=== PATIENT | female | born 2000 ===

== ENCOUNTER 2023-04-24 07:41 | Inpatient (IN) ==
[2023-04-24] MEDS ORDERED: OXYTOCIN 30 UNITS/NSS 30 UNITS/500 ML BAG IV PRN (10:15)
[2023-04-24] MEDS ORDERED: LIDOCAINE 1% LOCAL 20 ML VIAL INFIL PRN (10:15)
[2023-04-24] MEDS ORDERED: PENICILLIN GK 6 MU in DEXTROSE 5% 250 ML IV STA (10:20)
[2023-04-24] MEDS ORDERED: DINOPROSTONE 10 MG INSERT PV ONE (11:00)
--- NOTE | 2023-04-24 11:00 | History & Physical Report ---
Date of Service April 24, 2023 Assessment & Plan (1) Post-dates : Plan INDUCTION OF LABOR CERVICAL RIPENING WITH CERVIDIL Admission and Anticipated Discharge Date Admission Date: April 24, 2023 History of Present Illness Chief Complaint: induction of labor for post-dates Primary Care Provider: [facility] PCP 22 F P0000 at 40.5 weeks presents for induction of labor for post-dates . GBS is positive. Allergies Allergy/AdvReac Type Severity Reaction Status Date / Time clopidogrel [From Plavix] Allergy Anaphylaxis Verified 04/24/23 08:08 Home Medications Medication Instructions Recorded Confirmed Type aspirin 81 mg chewable tablet 81 mg PO DAILY 04/24/23 04/24/23 History ferrous sulfate 325 mg (65 mg 325 mg PO DAILY 04/24/23 04/24/23 History iron) tablet (Iron (ferrous sulfate)) levothyroxine 100 mcg tablet 100 mcg PO DAILY 04/24/23 04/24/23 History (Synthroid) [id number]-[id number] 1 mg 1 tab PO DAILY 04/24/23 04/24/23 History tablet Patient History Medical History Mitral valve prolapse History of COVID-07 February 2023 Iron (Fe) deficiency anemia Iron infusions X3 Mitral regurgitation Hypothyroid Surgical History History of percutaneous transcatheter closure of congenital ASD Repaired in 2019 at age [age] years old Family History Other No known health problems Social History Smoking Status: Never smoker Hx Alcohol Use: No Hx Substance Use: No Preferred Language: [place]an Visual Impairment: No Limitations Card Writer Hand Required: No Beliefs That Will Affect Care: None marital status: Single Current Living Situation: Significant Other Current Living Situation Comment: Lives with boyfriend, Jovany Wilcox current occupational status: employed current occupation: TRADER at [employer] Other Information That Helps Us Care for You: No Feels Safe at Home: Yes Safety Concerns: Feels Safe At This Time OB 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 Review of Systems All systems reviewed & are unremarkable except as noted in HPI & below Physical Exam Constitutional: WD/WN, vitals as above Eyes: PERRL, conjunctivae normal, anicteric sclerae Respiratory: normal respiratory effort, lungs clear to auscultation Cardiovascular: Rate/Rhythm: regular rate and regular rhythm Gastrointestinal (Abdomen): Inspection/Auscultation: abdomen normal to inspection Musculoskeletal: Extremities: extremities normal to inspection Skin: no rashes, warm and dry Neurologic: patellar DTR's 2+ bilat, sensation intact Psychiatric: A+Ox3, euthymic affect Genitourinary: no vaginal lesions, no adnexal mass OB Exam Abdomen: + fundal height and + vertex Manual OB Exam: + cervical dilation fingertip, + cervical effacement 50% and + station high OB Exam Monitor Tracing: + external FHT monitor used, + external uterine monitor used, + category I and + normal FHT variability posterior/firm EFW 6-7 lbs. Results & Data Vital Signs (Past 12 Hours) Vital Signs Temp Pulse Resp BP 04/24/23 08:16 88 119/77 04/24/23 08:11 36.9 C 18 Code Status & VTE Plan VTE Prophylaxis Plan VTE Prophylaxis will be ordered: No Monitoring External Monitor CAT 1
--- NOTE | 2023-04-24 11:16 | Labor Progress Brief Note ---
Date of Service April 24, 2023 Assessment & Plan Admission and Anticipated Discharge Date Admission Date: April 24, 2023 Physical Exam Genitourinary: OB Exam Monitor Tracing: + external FHT monitor used, + external uterine monitor used, + category I and + normal FHT variability Cervidil 10 mg placed vaginally Results & Data Vital Signs (Past 12 Hours) Vital Signs Temp Pulse Resp BP 04/24/23 11:12 78 120/64 04/24/23 08:16 88 119/77 04/24/23 08:11 36.9 C 18
[2023-04-24 11:50] LABS: Hematocrit (blood only) 37.1 % (37.0-47.0); Hemoglobin 12.4 g/dl (12.0-16.0); Mean Corpuscular Hemoglobin 28.9 pg (25.0-34.0); Mean Corpuscular Hgb Conc 33.4 g/dL (32.0-36.0); Mean Corpuscular Volume 86.5 fL (80.0-100.0); Mean Platelet Volume 12.8 fL (9.4-12.4); Platelet Count 108 K/uL (130-400); RDW Coefficient of Variation 16.3 % (11.5-14.5); RDW Standard Deviation 51.7 fL (36.4-46.3); Red Blood Count 4.29 M/uL (4.20-5.40); White Blood Count 9.66 K/ul (4.8-10.8)
[2023-04-24] MEDS ORDERED: PENICILLIN GK 3 MU in DEXTROSE 5% 100 ML IV PRN (13:15)
[2023-04-24] MEDS: LACTATED RINGER'S 1,000 ML IV PRN (23:02)
[2023-04-24] MEDS ORDERED: ePHEDrine sulfate 50 MG/ML AMP ONE (23:05)
[2023-04-24] MEDS ORDERED: SODIUM CHLORIDE 0.9% PF INJ 10 ML VIAL ONE (23:05)
[2023-04-24] MEDS ORDERED: fentANYL 2 MCG/ML BUPIVacaine 0.125%-NSS 100ML BAG ONE (23:05)
[2023-04-24] MEDS ORDERED: fentaNYL citrate PF 100 MCG/2 ML VIAL ONE (23:05)
[2023-04-24] MEDS ORDERED: LIDOCAINE 2%/EPINEPHRINE 1:200,000 20 ML PF ONE (23:06)
[2023-04-24] MEDS ORDERED: BUPIVACAINE 0.25% PF 30 ML VIAL ONE (23:06)
[2023-04-24] MEDS ORDERED: LIDOCAINE 2% MPF LOCAL 5 ML VIAL EPI PRN (23:11)
[2023-04-24] MEDS ORDERED: ePHEDrine sulfate 50 MG/ML AMP IV PRN (23:11)
[2023-04-24] MEDS ORDERED: BUPIVACAINE 0.25% PF 30 ML VIAL EPI PRN (23:11)
[2023-04-24] MEDS ORDERED: BUPIVACAINE 0.25% PF 30 ML VIAL EPI STA (23:11)
[2023-04-24] MEDS ORDERED: diphenhydrAMINE 50 MG/ML VIAL IV PRN (23:11)
[2023-04-24] MEDS ORDERED: SODIUM CHLORIDE 0.9% PF INJ 10 ML VIAL EPI PRN (23:11)
[2023-04-24] MEDS ORDERED: NALOXONE HCL 1 MG in SODIUM CHLORIDE 0.9% 1,000 ML IV PRN (23:11)
[2023-04-24] MEDS ORDERED: LIDOCAINE 2%/EPINEPHRINE 1:200,000 20 ML PF EPI STA (23:11)
[2023-04-24] MEDS ORDERED: ROPIVACAINE 0.5% PF 5 MG/ML 20 ML VIAL EPI PRN (23:11)
[2023-04-24] MEDS ORDERED: fentANYL 2 MCG/ML BUPIVacaine 0.125%-NSS 100ML BAG EPI PRN (23:11)
[2023-04-24] MEDS ORDERED: SODIUM CHLORIDE 0.9% PF INJ 10 ML VIAL EPI STA (23:11)
[2023-04-24] MEDS ORDERED: fentaNYL citrate PF 100 MCG/2 ML VIAL EPI STA (23:11)
[2023-04-24] MEDS ORDERED: NALBUPHINE HCL 5 MG in SYRINGE 0 ML IV PRN (23:11)
[2023-04-24] MEDS ORDERED: NALOXONE HCL 0.4 MG/1 ML VIAL/CARP IV PRN (23:11)
[2023-04-24] MEDS ORDERED: fentaNYL citrate PF 100 MCG/2 ML VIAL EPI PRN (23:11)
--- NOTE | 2023-04-24 23:11 | Anesthesiology Consultation ---
Date of Service April 24, 2023 Assessment & Plan Chart Review Chart Review: Patient NOT seen in Pre Admission Testing and Acceptable Risk for Labor Epidural Consults Requested none History Height/Weight Height: 5 ft 6 in Weight: 74.843 kg Allergies Allergy/AdvReac Type Severity Reaction Status Date / Time clopidogrel [From Plavix] Allergy Anaphylaxis Verified 04/24/23 08:08 Medications Home Medications Medication Instructions Recorded Confirmed Last Taken aspirin 81 mg chewable tablet 81 mg PO DAILY 04/24/23 04/24/23 04/24/23 ferrous sulfate 325 mg (65 mg 325 mg PO DAILY 04/24/23 04/24/23 04/24/23 iron) tablet (Iron (ferrous sulfate)) levothyroxine 100 mcg tablet 100 mcg PO DAILY 04/24/23 04/24/23 04/24/23 (Synthroid) [id number] 1 mg 1 tab PO DAILY 04/24/23 04/24/23 04/24/23 tablet Active Medications Generic Name Dose Route Start Last Admin Trade Name Freq PRN Reason Stop Dose Admin Lactated Ringer's 1,000 mls @ 125 mls/hr 04/24/23 10:15 04/24/23 23:02 Lr IV 04/26/23 10:14 999 mls/hr .Q8H PRN Administration L&D Protocol Protocol Past Medical History Medical History Mitral valve prolapse History of COVID-07 February 2023 Iron (Fe) deficiency anemia Iron infusions X3 Mitral regurgitation Hypothyroid Past Family History Family History Other No known health problems Past Surgical History Surgical History History of percutaneous transcatheter closure of congenital ASD Repaired in 2019 at age [age] years old Social History Smoking Status: Never smoker Hx Alcohol Use: No Hx Substance Use: No substance use type: does not use Physical Exam Vital Signs Last Vital Signs Temp 36.6 C 04/24/23 19:01 Pulse 93 H 04/24/23 22:51 Resp 18 04/24/23 19:01 BP 134/87 04/24/23 22:51 O2 Del Method Room Air 04/24/23 19:00 Constitutional WD/WN, vitals as above Eyes PERRL, conjunctivae normal, anicteric sclerae Respiratory normal respiratory effort, lungs clear to auscultation Cardiovascular Rate/Rhythm: regular rate and regular rhythm Gastrointestinal (Abdomen) Inspection/Auscultation: abdomen normal to inspection Musculoskeletal Extremities: extremities normal to inspection Skin no rashes, warm and dry Neurologic patellar DTR's 2+ bilat, sensation intact Psychiatric A+Ox3, euthymic affect Genitourinary no vaginal lesions, no adnexal mass OB Exam Abdomen: + fundal height and + vertex Manual OB Exam: + cervical dilation + fingertip, + cervical effacement + 50% and + station + high OB Exam Monitor Tracing: + external FHT monitor used, + external uterine monitor used, + category I and + normal FHT variability Testing Laboratory Results 04/24/23 10:22
[2023-04-25] MEDS: ONDANSETRON INJ 2 MG/ML 2 ML VIAL IV PRN ×2 (00:03→03:53)
[2023-04-25] MEDS: LACTATED RINGER'S 1,000 ML IV PRN (01:32)
[2023-04-25] MEDS ORDERED: OXYTOCIN 30 UNITS/NSS 30 UNITS/500 ML BAG IV PRN (05:18)
[2023-04-25] MEDS ORDERED: ACETAMINOPHEN 325 MG TAB PO PRN (05:18)
[2023-04-25] MEDS ORDERED: HYDROCORTISONE ACETATE 25 MG SUPP PR PRN (05:18)
[2023-04-25] MEDS ORDERED: DIPHTHERIA/TETANUS/PERTUSSIS Vaccine (Tdap, Age 7+yrs) 0.5mL SYR/VL IM ONE (05:18)
[2023-04-25] MEDS ORDERED: BENZOCAINE 20% SPRY 85 APPLN/85 GM CAN EXT PRN (05:18)
--- NOTE | 2023-04-25 05:25 | Delivery Summary ---
Vaginal Delivery Summary Date of Service April 25, 2023 Vaginal Delivery Summary live male JESSICA over intact perineum with nuchal cord x1 reduced at delivery of head with delayed cord clamping and Apgars 8/9 weight pending. Cord blood obtained followed by spontaneous delivery of intact placenta. No tears. EBL 150 ml. Final sponge and instrument count are correct. Mom and baby stable.
[2023-04-25] MEDS ORDERED: Nursing to Pharmacy Communication SCH (06:00)
[2023-04-25] MEDS: IBUPROFEN 600 MG TAB PO PRN ×2 (06:01→17:16)
[2023-04-25] MEDS: LEVOTHYROXINE SODIUM 100 MCG TABLET PO SCH (07:44)
--- NOTE | 2023-04-25 08:55 | Anesthesia Procedure Note ---
Date of Service April 25, 2023 Anesthesia Post Epidural Note Vital Signs Vital Signs: Temp Pulse Resp BP Pulse Ox O2 Del Method 36.8 C 91 H 18 114/57 L 98 Room Air 04/25/23 02:55 04/25/23 07:25 04/25/23 06:40 04/25/23 07:25 04/25/23 05:08 04/24/23 19:00 Pain Intensity Bilateral Abdomen: Pain Intensity: 0 Head: Pain Intensity: 0 Notes Mental Status: alert / awake / arousable and participated in evaluation Nausea / Vomiting: adequately controlled Pain: adequately controlled Airway Patency, RR, SpO2: stable & adequate BP & HR: stable & adequate Hydration State: stable & adequate Neuraxial Anesthesia: was administered and sensory block is resolving Anesthetic Complications: no major complications apparent Epidural: Removed without complications and With tip intact
[2023-04-25] MEDS ORDERED: NON-FORMULARY MEDICATION (Prenatal Multivit-Min-Fe-Fa 1 mg Tablet) PO SCH (09:00)
[2023-04-25] MEDS ORDERED: FERROUS SULFATE 325 MG TAB PO SCH (09:00)
[2023-04-25] MEDS: DOCUSATE SODIUM 100 MG CAP PO SCH ×2 (09:34→21:06)
[2023-04-25] MEDS: PRENATAL VITAMIN 1 TAB PO SCH (09:34)
[2023-04-25] MEDS: FERROUS SULFATE 325 MG TAB PO SCH (09:34)
[2023-04-25] MEDS: ASPIRIN 81 MG ECTAB PO SCH (14:38)
[2023-04-26] MEDS: LEVOTHYROXINE SODIUM 100 MCG TABLET PO SCH (06:08)
[2023-04-26 08:03] LABS: Hematocrit (blood only) 34.4 % (37.0-47.0); Hemoglobin 11.8 g/dl (12.0-16.0); Mean Corpuscular Hemoglobin 29.5 pg (25.0-34.0); Mean Corpuscular Hgb Conc 34.3 g/dL (32.0-36.0); Mean Platelet Volume 12.8 fL (9.4-12.4); Platelet Count 89 K/uL (130-400); RDW Coefficient of Variation 16.2 % (11.5-14.5); RDW Standard Deviation 50.9 fL (36.4-46.3); White Blood Count 10.01 K/ul (4.8-10.8)
[2023-04-26] MEDS: FERROUS SULFATE 325 MG TAB PO SCH (08:16)
[2023-04-26] MEDS: PRENATAL VITAMIN 1 TAB PO SCH (08:16)
[2023-04-26] MEDS: ASPIRIN 81 MG ECTAB PO SCH (08:16)
[2023-04-26] MEDS: DOCUSATE SODIUM 100 MG CAP PO SCH (08:16)
--- NOTE | 2023-04-26 09:21 | Obstetrical Progress Note ---
Date of Service April 26, 2023 Subjective Ambulation: ambulating normally Voiding: no voiding problems Passing Gas:: Yes Diet Tolerance:: regular diet Lochia:: Small Feeding Type:: breast feeding Current Pain Level(1-10): 0 doing well. wants to go home Physical Exam Constitutional WD/WN, vitals as above Gastrointestinal (Abdomen) Inspection/Auscultation: abdomen normal to inspection Musculoskeletal Extremities: extremities normal to inspection Skin no rashes, warm and dry Neurologic patellar DTR's 2+ bilat, sensation intact Psychiatric A+Ox3, euthymic affect Results & Data Vital Signs (Past 12 Hours) Vital Signs Temp Pulse Pulse Resp BP BP Pulse Ox 04/26/23 08:56 36.5 C 96 H 18 116/71 97 04/26/23 03:21 36.4 C L 65 18 97/60 L 95 04/25/23 23:45 36.7 C 48 L 18 109/71 97 O2 Del Method 04/26/23 08:56 04/26/23 03:21 Room Air 04/25/23 23:45 Room Air Laboratory Results Laboratory Results - last 72 hr 04/24/23 04/26/23 10:22 06:49 WBC 9.66 10.01 RBC 4.29 4.00 L Hgb 12.4 11.8 L Hct 37.1 34.4 L MCV 86.5 86.0 MCH 28.9 29.5 MCHC 33.4 34.3 RDW Std Deviation 51.7 H 50.9 H RDW Coeff of Beronica 16.3 H 16.2 H Plt Count 108 L 89 L MPV 12.8 H 12.8 H Blood Type O Negative Antibody Screen NEGATIVE Screen Negative
[2023-04-26] MEDS ORDERED: bisacodyL 5 MG TABEC PO SCH (20:00)
[2023-04-27] MEDS ORDERED: bisacodyL 10 MG SUPP PR PRN (05:18)
--- NOTE | 2023-04-28 04:30 | Coding Query ---
CODING QUERY To promote full compliance with coding requirements relating to patient care, provider participation is requested in all cases of mechanical lead uncertainty. Please assist us with the question(s) below: Coding Question(s): There is documentation on the Labor Epidural/Spinal Record of significant history of MVR and the H&P documents Mitral Regurgitation under Patient History. Please specify below, in your clinical opinion regarding Mitral Valve Regurgitation: ( ) was complicated by Mitral Valve Regurgitation ( x ) was Not complicated by Mitral Valve Regurgitation ( ) Other: Please Specify Physician's Response(s): Thank you Trish Groves Principal Diagnosis: "that condition established after study, to be chiefly responsible for occasioning the admission of the patient to the hospital for care." Co-Existing Principal Diagnosis: "when two or more diagnoses equally meet the criteria for principal diagnosis as determined by the circumstances of admission, diagnostic work up, and/or therapy provided, and the Alphabetic Index, Tabular List, or another coding guideline does not provide sequencing direction, any one of the diagnoses may be sequenced first." "When the physician has documented what appears to be a current diagnosis in the body of the record, but has not included the diagnosis in the final diagnostic statement, the physician should be asked whether the diagnosis should be added." (Source Coding [facility] 2 QTR90. p3-4) RINA
== END 2023-04-26 11:55 | disposition home or self-care (01) | DRG 807 ==
LOC: 4S1 07:41 → 4E2 04-25 09:15